=== PATIENT | female | born 1995 | race Caucasian/White ===

== ENCOUNTER → 2016-05-28 | Outpatient (CLI) | payer MEDICAID ==
[~2016-05-28] MED LIST: DOCU100C37 PO; FERR325C PO; IBUP-1780 PO; METH250T PO; OXYC-465 PO; PNV11TAB5 PO; PREN1TAB86 PO
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
== END ==
LOC: LABNPT 16:20
PROVIDERS: ATTEND Obstetrics & Gynecology
DX: O28.8 Other abnormal findings on antenatal screening of mother (principal)
CPT/HCPCS: 82570; 84156

== ENCOUNTER 2016-05-31 16:51 | Outpatient (CLI) | payer MEDICAID ==
[2016-05-31] VITALS (10 sets, daily range): BP systolic 121–143; BP diastolic 14–95
[~2016-05-31] VITALS: Ht 154.9 cm; Wt 92.5 kg
--- OUTSIDE RECORDS SUMMARY | 2016-05-31 16:57 | XMS REPORT ---
Author SUELLEN [facility] eClinicalWorks Address Unknown Phone Unavailable Care Team Providers Care Costume Design Teacher Name Role Phone SUELLEN GONZALEZ CP Unavailable Allergies, Adverse Reactions, Alerts Substance Reaction Event Type N.K.D.A. Info Not Available Non Drug Allergy Problems Problem Type Condition Code Onset Dates Condition Status Problem Screening examination for venereal disease V74.5 Active Problem Acute pharyngitis 462 Active Problem General counseling for prescription of oral contraceptives V25.01 Active Problem Screening examination for pulmonary tuberculosis V74.1 Active Medications Medication Code System Code Instructions Start Date End Date Status Dosage [facility] [address]-08 27-1 MG Orally not defined Results No Known Results Summary Purpose eClinicalWorks Submission
[2016-05-31 17:59] LABS: BASOPHILS % (AUTO) 0 % (0-10); EOSINOPHILS # (AUTO) 0.1 10^3/uL (0.0-0.3); EOSINOPHILS % (AUTO) 1 % (0-10); LYMPHOCYTES # (AUTO) 2.1 X 10^3 (1.0-4.0); LYMPHOCYTES % (AUTO) 19 % (12-44); MEAN CORPUSCULAR HEMOGLOBIN 22 PG (25-34); MEAN CORPUSCULAR HGB CONC 32 G/DL (32-36); MEAN CORPUSCULAR VOLUME 68 FL (80-99); MEAN PLATELET VOLUME 10.6 FL (7.4-10.4); MONOCYTES # (AUTO) 1.4 X 10^3 (0.0-1.0); MONOCYTES % (AUTO) 12 % (0-12); NEUTROPHILS # (AUTO) 7.5 X 10^3 (1.8-7.8); NEUTROPHILS % (AUTO) 68 % (42-75); PLATELET COUNT 238 10^3/uL (130-400); RED CELL DISTRIBUTION WIDTH 17.4 % (10.0-14.5); WHITE BLOOD COUNT 11.1 10^3/uL (4.3-11.0)
[2016-05-31 18:18] LABS: PROTEIN/CREATININE RATIO 0.15
[2016-05-31 18:20] LABS: ALANINE AMINOTRANSFERASE 12 U/L (0-55); ALBUMIN 3.1 G/DL (3.2-4.5); ANION GAP 10 MMOL/L (5-14); ASPARTATE AMINO TRANSFERASE 15 U/L (5-34); BILIRUBIN,TOTAL 0.4 MG/DL (0.1-1.0); BLOOD UREA NITROGEN 8 MG/DL (7-18); BUN/CREATININE RATIO 12; CALCIUM 9.4 MG/DL (8.5-10.1); CARBON DIOXIDE 22 MMOL/L (21-32); CHLORIDE 105 MMOL/L (98-107); CREATININE SERUM 0.66 MG/DL (0.60-1.30); GFR ESTIMATED > 60; GLUCOSE 76 MG/DL (70-105); LACTATE DEHYDROGENASE 181 U/L (125-220); SODIUM 137 MMOL/L (135-145); TOTAL PROTEIN 6.3 G/DL (6.4-8.2); URIC ACID 4.7 MG/DL (2.6-7.2)
[2016-05-31] MEDS ORDERED: PREN1TAB86 PO ×2 (18:33)
--- NOTE | 2016-06-03 15:08 | Physician Query-Final Dx ---
MOOK MCLEOD 06/03/16 1508: Clinic Account Progress/Dx Physician Query: Please give diagnosis Date of Service May 31, 2016 at 16:51 CAROL GODINEZ MD 06/04/16 0823: Clinic Account Progress/Dx DIAGNOSIS: Diagnosis KELVIN MOOK MCLEOD Jun 03, 2016 15:08 CAROL GODINEZ MD Jun 04, 2016 08:23
[2016-06-26] MEDS ORDERED: DOCU100C37 PO (07:54)
[2016-06-26] MEDS ORDERED: IBUP-1780 PO (07:54)
[2016-06-26] MEDS ORDERED: OXYC-465 PO (07:54)
== END 2016-05-31 18:40 | disposition home or self-care (01) ==
LOC: WSo 16:51 → LDRP 16:54 → WSo 18:40
PROVIDERS: ATTEND Obstetrics & Gynecology
DX: O13.9 Gestational [pregnancy-induced] hypertension without significant proteinuria, unspecified trimester (principal)
CPT/HCPCS: 36415; 80053; 82570; 83615; 84156; 84550; 85025; 99213

== ENCOUNTER 2016-06-02 17:37 | Outpatient (CLI) | payer MEDICAID ==
[~2016-06-02] VITALS: Ht 154.9 cm; Wt 92.5 kg
[~2016-06-02 17:37] MED LIST changes: -DOCU100C37 PO; -FERR325C PO; -IBUP-1780 PO; -METH250T PO; -OXYC-465 PO; -PNV11TAB5 PO
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
[2016-06-02 17:55] VITALS: BP 142/90
[2016-06-02] MEDS ORDERED: FERR325C PO ×2 (18:01)
[2016-06-02 18:10] VITALS: BP 135/78
[2016-06-02 18:25] VITALS: BP 134/84
[2016-06-02 18:40] VITALS: BP 127/76
[2016-06-02 18:55] VITALS: BP 143/92
[2016-06-02] MEDS ORDERED: CITRIC ACID/SOB CIT (BICITRA) 30 ML UDC PO ONE (19:00)
[2016-06-02] MEDS ORDERED: D5 LR IV SOLUTION 1,000 ML IV SCH (19:00)
[2016-06-02 19:19] LABS: BASOPHILS % (AUTO) 0 % (0-10); EOSINOPHILS # (AUTO) 0.2 10^3/uL (0.0-0.3); EOSINOPHILS % (AUTO) 2 % (0-10); LYMPHOCYTES # (AUTO) 2.1 X 10^3 (1.0-4.0); LYMPHOCYTES % (AUTO) 20 % (12-44); MEAN CORPUSCULAR HEMOGLOBIN 22 PG (25-34); MEAN CORPUSCULAR HGB CONC 32 G/DL (32-36); MEAN CORPUSCULAR VOLUME 69 FL (80-99); MEAN PLATELET VOLUME 11.1 FL (7.4-10.4); MONOCYTES # (AUTO) 1.3 X 10^3 (0.0-1.0); MONOCYTES % (AUTO) 13 % (0-12); NEUTROPHILS # (AUTO) 6.8 X 10^3 (1.8-7.8); NEUTROPHILS % (AUTO) 66 % (42-75); PLATELET COUNT 259 10^3/uL (130-400); RED BLOOD COUNT 4.26 10^6/uL (4.35-5.85); RED CELL DISTRIBUTION WIDTH 17.6 % (10.0-14.5); WHITE BLOOD COUNT 10.4 10^3/uL (4.3-11.0)
[2016-06-02 19:44] VITALS: BP 133/86
[2016-06-02 19:46] LABS: ALANINE AMINOTRANSFERASE 13 U/L (0-55); ALBUMIN 3.1 G/DL (3.2-4.5); ANION GAP 11 MMOL/L (5-14); ASPARTATE AMINO TRANSFERASE 18 U/L (5-34); BILIRUBIN,TOTAL 0.3 MG/DL (0.1-1.0); BLOOD UREA NITROGEN 7 MG/DL (7-18); BUN/CREATININE RATIO 11; CALCIUM 8.9 MG/DL (8.5-10.1); CARBON DIOXIDE 19 MMOL/L (21-32); CHLORIDE 106 MMOL/L (98-107); CREATININE SERUM 0.64 MG/DL (0.60-1.30); GFR ESTIMATED > 60; GLUCOSE 89 MG/DL (70-105); POTASSIUM 3.7 MMOL/L (3.6-5.0); SODIUM 136 MMOL/L (135-145); TOTAL PROTEIN 6.3 G/DL (6.4-8.2)
--- NOTE | 2016-06-03 15:20 | Physician Query-Final Dx ---
MOOK MCLEOD 06/03/16 1520: Clinic Account Progress/Dx Physician Query: Please give diagnosis Date of Service Jun 02, 2016 at 17:37 CAROL GODINEZ MD 06/04/16 0826: Clinic Account Progress/Dx DIAGNOSIS: Diagnosis false labor MOOK MCLEOD Jun 03, 2016 15:20 CAROL GODINEZ MD Jun 04, 2016 08:26
[2016-06-26] MEDS ORDERED: DOCU100C37 PO (07:54)
[2016-06-26] MEDS ORDERED: OXYC-465 PO (07:54)
[2016-06-26] MEDS ORDERED: IBUP-1780 PO (07:54)
== END 2016-06-02 21:25 | disposition home or self-care (01) ==
LOC: LDRP 17:37 → WSo 17:37
PROVIDERS: ATTEND Obstetrics & Gynecology
DX: O47.03 False labor before 37 completed weeks of gestation, third trimester (principal); Z3A.35 35 weeks gestation of pregnancy
CPT/HCPCS: 36415; 80053; 85025; 96360; 96361; 99214

== ENCOUNTER → 2016-06-04 | Outpatient (CLI) | payer MEDICAID ==
[~2016-06-04] MED LIST changes: +DOCU100C37 PO; +FERR325C PO; +IBUP-1780 PO; +METH250T PO; +OXYC-465 PO; +PNV11TAB5 PO
[2016-06-04 17:02] LABS: PROTEIN/CREATININE RATIO 0.14
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
== END ==
LOC: LABNPT 12:00
PROVIDERS: ATTEND Obstetrics & Gynecology
DX: O14.03 Mild to moderate pre-eclampsia, third trimester (principal)
CPT/HCPCS: 82570; 84156

== ENCOUNTER 2016-06-10 14:22 | Outpatient (CLI) | payer MEDICAID ==
[~2016-06-10] VITALS: Ht 154.9 cm; Wt 93.4 kg
[~2016-06-10 14:22] MED LIST changes: -DOCU100C37 PO; -IBUP-1780 PO; -METH250T PO; -OXYC-465 PO; -PNV11TAB5 PO
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
[2016-06-10 15:00] VITALS: BP 134/93
[2016-06-10] MEDS ORDERED: D5 LR IV SOLUTION 1,000 ML IV ONE (15:00)
[2016-06-10 15:29] LABS: PROTEIN/CREATININE RATIO 0.12
[2016-06-10 16:25] VITALS: BP 154/94
[2016-06-10] MEDS ORDERED: oxyCODONE/APAP 10/325MG (PERCOCET 10) TABLET PO ONE (17:00)
[2016-06-10 17:10] VITALS: BP 137/90
--- NOTE | 2016-06-11 11:24 | Physician Query-Final Dx ---
SALINAS PAREDES 06/11/16 1124: Final Diagnosis Give Final Diagnosis Please give Final Diagnosis CAROL GODNIEZ MD 06/11/16 1728: Final Diagnosis Give Final Diagnosis PIH / false labor SALINAS PAREDES Jun 11, 2016 11:24 CAROL GODINEZ MD Jun 11, 2016 17:28
== END 2016-06-10 18:03 | disposition home or self-care (01) ==
LOC: LDRP 14:22 → WSo 14:22
PROVIDERS: ATTEND Obstetrics & Gynecology
DX: O13.3 Gestational [pregnancy-induced] hypertension without significant proteinuria, third trimester (principal); O47.03 False labor before 37 completed weeks of gestation, third trimester; Z3A.36 36 weeks gestation of pregnancy
CPT/HCPCS: 82570; 84156; 96360; 99214

== ENCOUNTER 2016-06-19 08:04 | Outpatient (CLI) | payer MEDICAID ==
[2016-06-19 09:40] VITALS: BP 155/77
[2016-06-19 09:53] LABS: PROTEIN/CREATININE RATIO 0.13
--- NOTE | 2016-06-19 11:35 | Progress Note-Standard ---
Standard Progress Note Progress Notes/Assess & Plan Date Seen 06/19/16 Assess & Plan/Chief Complaint Update Note Pt presented to [facility] as ordered by Dr. Moore for NST, BP check and urine protein:cr ratio for "PIH/polyhydramnios" Reviewed BPs - mild range (133/93) - was mild range as well last week when evaluated on 06/10. I do not have records of BPs from her recent clinic visits to review. Denied si/sx of pre-eclampsia to RN. NST reactive. Protein:cr ratio 0.13. Will act in accordance with Dr. Moore's plan for patient to be seen in clinic next week as vitals/labs have not changed and surveillance is reassuring. Instructed RN to instruct patient to return with any si/sx pre- eclampsia or ANY other concerns. I did not personally see patient today. BARBARA BUTTS MD Jun 19, 2016 11:35
--- NOTE | 2016-06-20 09:55 | Physician Query-Final Dx ---
Clinic Account Progress/Dx Physician Query: Please give diagnosis Date of Service Jun 19, 2016 at 08:04 SALINAS PAREDES Jun 20, 2016 09:55
[2016-06-26] MEDS ORDERED: IBUP-1780 PO (07:54)
[2016-06-26] MEDS ORDERED: OXYC-465 PO (07:54)
[2016-06-26] MEDS ORDERED: DOCU100C37 PO (07:54)
== END 2016-06-19 11:35 | disposition home or self-care (01) ==
LOC: DELPENDDIS → WSo 08:04 → LDRP 08:04 → WSo 11:35
PROVIDERS: ATTEND Obstetrics & Gynecology
DX: O13.3 Gestational [pregnancy-induced] hypertension without significant proteinuria, third trimester (principal); O40.3XX0 Polyhydramnios, third trimester, not applicable or unspecified; Z3A.38 38 weeks gestation of pregnancy
CPT/HCPCS: 59025; 82570; 84156

== ENCOUNTER → 2016-06-24 | Outpatient (CLI) | payer MEDICAID ==
[~2016-06-24] MED LIST changes: +DOCU100C37 PO; +IBUP-1780 PO; +METH250T PO; +OXYC-465 PO; +PNV11TAB5 PO
[2016-06-24 16:25] LABS: PROTEIN/CREATININE RATIO 0.21
== END ==
LOC: LABNPT 15:30
PROVIDERS: ATTEND Obstetrics & Gynecology
DX: O28.8 Other abnormal findings on antenatal screening of mother (principal)
CPT/HCPCS: 82570; 84156

== ENCOUNTER 2016-06-25 07:21 | Inpatient (IN) | payer MEDICAID ==
[2016-06-25] VITALS (50 sets, daily range): BP systolic 115–155; BP diastolic 60–98
[~2016-06-25] VITALS: Ht 152.4 cm; Wt 92.8 kg
[~2016-06-25 07:21] MED LIST changes: -DOCU100C37 PO; -IBUP-1780 PO; -METH250T PO; -OXYC-465 PO; -PNV11TAB5 PO
[2016-06-25] MEDS ORDERED: OXYTOCIN/NORMAL SALINE 500 ML IV SCH ×2 (07:36→17:42)
[2016-06-25] MEDS ORDERED: METH250T PO (07:39)
[2016-06-25] MEDS ORDERED: PNV11TAB5 PO (07:39)
[2016-06-25] MEDS: D5 LR IV SOLUTION 1,000 ML IV SCH ×2 (07:40→14:25)
--- NOTE | 2016-06-25 07:41 | History & Physical ---
History and Physical this patient is a 20-year-old G1 white female with an EDC of 4 [phone] putting her now at 39 weeks gestation. She has had persistent elevated blood pressures her she has been on Aldomet 250 mg twice a day for control of her -induced hypertension followed also for somewhat elevated amniotic fluid level. Her WINNIE last checked on June 11 was 234 patient presents now for elective induction of labor. She denies rupture membranes or bleeding. She's had no other problems with this . She had a GBS culture on May that was negative Allergies are none Medications are vitamins iron sulfate and Aldomet Past medical history, past surgical history, obstetric history, family history, and social histories are per the antepartum record HEENT exam is normal Neck is supple no lymphadenopathy no thyromegaly Abdomen is gravid soft nontender nondistended Extreme show clubbing cyanosis. There is no Homans sign. There is some pretibial pitting edema that is normal. Exam was performed on June 24, 2016 in my clinic showed a cervix about 3 similar dilated 50 percent plus effaced -1-0 station the cervix is anterior and soft. Presenting part was vertex. Membranes were intact. Polanco score of 9 at 10 assessment and plan term at 39 weeks gestation with PIH and with mild polyhydramnios. She is admitted now at 39 weeks gestation for Pitocin induction of labor. Anticipation is for vaginal delivery although the potential for has been discussed with the patient and plans preparation replace for if necessary 39 week with PIH and polyhydramnios Allergies and Home Medications Allergies Coded Allergies: No Known Drug Allergies (Unverified , 07/07/15) Home Medications Ferrous Sulfate 325 Mg Capsule.er, 325 MG PO DAILY, (Reported) Vit W-Ca,Fe,FA(<1 mg) 1 Each Tablet, 1 EACH PO DAILY, (Reported) CAROL GODINEZ MD Jun 25, 2016 7:41 am
--- NOTE | 2016-06-25 07:42 | OB Bishop Score ---
Polanco Score 9 CAROL GODINEZ MD Jun 25, 2016 7:42 am
[2016-06-25 08:12] LABS: BASOPHILS % (AUTO) 0 % (0-10); EOSINOPHILS # (AUTO) 0.1 10^3/uL (0.0-0.3); EOSINOPHILS % (AUTO) 1 % (0-10); LYMPHOCYTES # (AUTO) 2.2 X 10^3 (1.0-4.0); LYMPHOCYTES % (AUTO) 17 % (12-44); MEAN CORPUSCULAR HEMOGLOBIN 22 PG (25-34); MEAN CORPUSCULAR HGB CONC 32 G/DL (32-36); MEAN CORPUSCULAR VOLUME 69 FL (80-99); MEAN PLATELET VOLUME 11.5 FL (7.4-10.4); MONOCYTES # (AUTO) 1.3 X 10^3 (0.0-1.0); MONOCYTES % (AUTO) 10 % (0-12); NEUTROPHILS # (AUTO) 9.3 X 10^3 (1.8-7.8); NEUTROPHILS % (AUTO) 72 % (42-75); PLATELET COUNT 250 10^3/uL (130-400); RED CELL DISTRIBUTION WIDTH 18.6 % (10.0-14.5); WHITE BLOOD COUNT 12.8 10^3/uL (4.3-11.0)
[2016-06-25] MEDS ORDERED: ACETAMINOPHEN 500 MG TAB (TYLENOL) PO PRN (09:30)
[2016-06-25] MEDS ORDERED: LACTATED RINGERS 1,000 ML IV ONE ×3 (11:16→17:35)
[2016-06-25] MEDS ORDERED: BUPIVACAINE 0.25% 30 ML (SENSORCAINE) VIAL ONE (11:17)
[2016-06-25] MEDS ORDERED: fentaNYL INJECTION 100 MCG/2 ML AMP ONE ×2 (11:17→17:51)
[2016-06-25] MEDS ORDERED: SUFENTA 0.6MCG/ML BUPIVA 0.125 100 ML ONE (11:17)
[2016-06-25] MEDS ORDERED: ONDANSETRON 4 MG/2 ML (SDV) Z0FRAN IV PRN (13:15)
[2016-06-25] MEDS ORDERED: EPIDURAL (SUFENTA 0.6MCG/ML BUPIVA 0.125%) 100 ML BAG EPI SCH (13:15)
[2016-06-25] MEDS ORDERED: BUPIVACAINE 0.25% 30 ML (SENSORCAINE) VIAL INJ ONE (13:15)
[2016-06-25] MEDS ORDERED: NALOXONE 0.4 MG/ML 1 ML (NARCAN) VIAL IV PRN (13:15)
[2016-06-25] MEDS ORDERED: metroNIDAZOLE 500MG/100ML IVPB 100 ML ONE (17:35)
[2016-06-25] MEDS ORDERED: METOCLOPRAMIDE INJ 10 MG/2 ML (REGLAN) ONE (17:35)
[2016-06-25] MEDS ORDERED: FAMOTIDINE 20MG/2ML IV (PEPCID) ONE (17:35)
[2016-06-25] MEDS ORDERED: ceFAZolin 2 GM/50 ML NS 50 ML IV ONE (17:35)
[2016-06-25] MEDS ORDERED: CITRIC ACID/SOB CIT (BICITRA) 30 ML UDC ONE (17:35)
[2016-06-25] MEDS ORDERED: D5 LR IV SOLUTION 1,000 ML IV SCH (17:40)
--- NOTE | 2016-06-25 17:40 | Progress Note-Standard ---
Standard Progress Note Progress Notes/Assess & Plan Progress/Assessment & Plan called to see patient has no cervical change for over 2 hours now. Patient reached 7 cm on Pitocin induction and had stalled there. The presenting part was at the -1 station and has not descended any beyond that. there started to be fairly significant early D cells that are beginnng to have a slow recovery. This is been discussed with patient she understands with the lack of progress and with the D cells that is appropriate now to stop the Pitocin and proceed with . She understands and agrees. Surgical risk complication recovering follow-up have been discussed with this patient during her and anticipation of a . All of her questions were answered she is ready to proceed Laboratory Tests 06/25/16 07:30 Vital Signs 06/25/16 06/25/16 16:30 17:00 Temp 98.3 Pulse 101 Resp 20 B/P (MAP) 136/84 Pulse Ox 100 O2 Delivery Non Rebreather O2 Flow Rate 10.00 Abdomen is gravid. Pelvic exam reveals a cervix at 7 cm dilated 60 or 70 percent effaced. Presenting part is at the -1 station with relatively long caput. Patient has been at 18 mU/m with good effect. As patient has failed to demonstrate adequate progress now with Pitocin stopped with the uterus can be allowed to rest. Surgical crews anesthesia and crank hand have been notified. C- section is pending CAROL GODINEZ MD Jun 25, 2016 5:40 pm
[2016-06-25] MEDS ORDERED: LACTATED RINGERS 1,000 ML IV PRN (17:43)
[2016-06-25] MEDS ORDERED: KETOROLAC 30 MG/ML VIAL IVP SCH (17:45)
[2016-06-25] MEDS ORDERED: MEASLES,MUMPS,RUBELLA 1 EA INJ SC ONE (17:45)
[2016-06-25] MEDS ORDERED: METOCLOPRAMIDE INJ 10 MG/2 ML (REGLAN) IV ONE (17:45)
[2016-06-25] MEDS ORDERED: CITRIC ACID/SOB CIT (BICITRA) 30 ML UDC PO ONE (17:45)
[2016-06-25] MEDS ORDERED: FAMOTIDINE 20MG/2ML IV (PEPCID) IV ONE (17:45)
[2016-06-25] MEDS ORDERED: PROMETHAZINE INJ 25 MG/ML (PHENERGAN) AMP IM PRN (17:45)
[2016-06-25] MEDS ORDERED: metroNIDAZOLE 500MG/100ML IVPB 100 ML IV ONE (17:45)
[2016-06-25] MEDS ORDERED: MEPERIDINE (DEMEROL) INJ 100 MG/ML IM PRN (17:45)
[2016-06-25] MEDS ORDERED: TETANUS,DIPTH,PERTUSS P/F (BOOSTRIX) 0.5 ML VIAL IM ONE (17:45)
[2016-06-25] MEDS ORDERED: D5 LR IV SOLUTION 1,000 ML IV ONE (17:50)
[2016-06-25] MEDS ORDERED: ONDANSETRON 4 MG/2 ML (SDV) Z0FRAN ONE (17:50)
[2016-06-25] MEDS ORDERED: BUPIVACAINE 0.5% 30 ML (SENSORCAINE) VIAL ONE (18:25)
[2016-06-25] MEDS ORDERED: LIDOCAINE PF 2% 10 ML (XYLOCAINE) AMP ONE (18:25)
[2016-06-25] MEDS ORDERED: OXYTOCIN/NORMAL SALINE 500 ML IV ONE (18:34)
[2016-06-25] MEDS: KETOROLAC 30 MG/ML VIAL IVP SCH (19:00)
[2016-06-25] MEDS: DOCUSATE SODIUM 100 MG (COLACE) CAP PO SCH (22:28)
[2016-06-26] MEDS: KETOROLAC 30 MG/ML VIAL IVP SCH ×2 (00:31→06:04)
[2016-06-26 04:26] VITALS: BP 123/79
[2016-06-26] MEDS: oxyCODONE/APAP 10/325MG (PERCOCET 10) TABLET PO PRN ×4 (05:43→21:52)
--- NOTE | 2016-06-26 07:51 | Progress Note-Standard ---
Standard Progress Note Progress Notes/Assess & Plan Progress/Assessment & Plan called to see patient has no cervical change for over 2 hours now. Patient reached 7 cm on Pitocin induction and had stalled there. The presenting part was at the -1 station and has not descended any beyond that. there started to be fairly significant early D cells that are beginnng to have a slow recovery. This is been discussed with patient she understands with the lack of progress and with the D cells that is appropriate now to stop the Pitocin and proceed with . She understands and agrees. Surgical risk complication recovering follow-up have been discussed with this patient during her and anticipation of a . All of her questions were answered she is ready to proceed Laboratory Tests 06/25/16 07:30 Vital Signs 06/25/16 06/25/16 16:30 17:00 Temp 98.3 Pulse 101 Resp 20 B/P (MAP) 136/84 Pulse Ox 100 O2 Delivery Non Rebreather O2 Flow Rate 10.00 Abdomen is gravid. Pelvic exam reveals a cervix at 7 cm dilated 60 or 70 percent effaced. Presenting part is at the -1 station with relatively long caput. Patient has been at 18 mU/m with good effect. As patient has failed to demonstrate adequate progress now with Pitocin stopped with the uterus can be allowed to rest. Surgical crews anesthesia and gut snatcher have been notified. C- section is pending June 26, 2016 Patient is without complaint. Patient is ambulating, voiding, tolerating by mouth well, denies chest pain, denies shortness of breath, denies nausea vomiting, denies headache, patient has good pain control. Vital Signs Date Time Temp Pulse Resp B/P (MAP) Pulse Ox O2 Delivery O2 Flow Rate FiO2 06/26/16 04:26 97.8 98 16 123/79 97 Room Air 06/25/16 23:47 98.9 104 16 123/73 97 Room Air 06/25/16 20:00 96.7 100 18 128/79 97 Room Air 06/25/16 18:00 115 20 150/98 98 Room Air 06/25/16 17:45 117 20 135/76 100 Non Rebreather 10.00 06/25/16 17:30 98.6 92 20 136/83 100 Non Rebreather 10.00 06/25/16 17:15 94 20 136/91 100 Non Rebreather 10.00 06/25/16 17:00 101 20 136/84 100 Non Rebreather 10.00 06/25/16 16:45 98 20 135/75 100 Non Rebreather 10.00 06/25/16 16:30 98.3 102 20 133/80 100 Non Rebreather 10.00 06/25/16 16:15 99 20 133/79 100 Non Rebreather 10.00 06/25/16 16:00 98 20 129/77 100 Non Rebreather 10.00 06/25/16 15:45 96 20 126/80 100 Non Rebreather 10.00 06/25/16 15:30 98.5 93 20 131/68 100 Non Rebreather 10.00 06/25/16 15:15 104 20 126/76 100 Non Rebreather 10.00 06/25/16 15:00 90 20 128/85 100 Non Rebreather 10.00 06/25/16 14:45 89 20 118/78 100 Non Rebreather 10.00 06/25/16 14:30 99.2 111 20 124/84 98 Room Air 06/25/16 14:15 120 20 131/87 99 Room Air 06/25/16 14:00 120 20 126/84 99 Room Air 06/25/16 13:45 107 20 123/77 99 Room Air 06/25/16 13:30 116 20 125/78 99 Room Air 06/25/16 13:15 97.8 105 20 115/67 100 Room Air 06/25/16 13:00 114 20 119/73 99 Room Air 06/25/16 12:45 110 20 120/60 98 Room Air 06/25/16 12:30 113 20 116/61 98 Room Air 06/25/16 12:15 98.6 120 20 120/62 99 Room Air 06/25/16 12:03 110 20 130/78 98 Room Air 06/25/16 12:01 107 20 128/79 99 Room Air 06/25/16 12:00 106 20 144/93 99 Room Air 06/25/16 11:58 107 20 131/81 99 Room Air 06/25/16 11:56 113 20 145/90 98 Room Air 06/25/16 11:54 120 20 141/84 99 Room Air 06/25/16 11:50 123 20 137/87 98 Room Air 06/25/16 11:45 106 20 142/91 Room Air 06/25/16 11:30 98.3 118 20 146/96 Room Air 06/25/16 11:15 108 20 136/90 Room Air 06/25/16 11:00 105 20 132/86 Room Air 06/25/16 10:45 98.4 100 20 143/88 Room Air 06/25/16 10:30 106 20 141/90 Room Air 06/25/16 10:15 106 20 151/90 Room Air 06/25/16 10:00 104 20 154/90 Room Air 06/25/16 09:45 101 20 155/95 Room Air 06/25/16 09:30 98.5 104 20 139/91 Room Air 06/25/16 09:15 98.0 102 20 136/88 Room Air 06/25/16 09:00 104 20 136/86 Room Air 06/25/16 08:45 105 20 132/87 Room Air 06/25/16 08:30 112 20 135/89 Room Air 06/25/16 08:15 108 20 131/87 Room Air 06/25/16 08:00 106 20 139/81 Room Air I & O 06/26/16 07:00 Intake Total 5795 ml Output Total 2500 ml Balance 3295 ml Signs are stable. Patient is afebrile. Fundus is firm below the umbilicus and nontender. The abdomen is minimally tympanitic. the incision is clean dry and intact. Extremities show clubbing cyanosis. There is no Homans sign. There is some pretibial pitting edema that is normal. assessment and plan postoperative day number 1 status post primary doing well. Plan is for routine convalescence care today and consider discharge home tomorrow CAROL GODINEZ MD Jun 26, 2016 7:51 am
[2016-06-26] MEDS ORDERED: IBUP-1780 PO (07:54)
[2016-06-26] MEDS ORDERED: OXYC-465 PO (07:54)
[2016-06-26] MEDS ORDERED: DOCU100C37 PO (07:54)
--- NOTE | 2016-06-26 07:55 | Discharge Instructions ---
Discharge Instructions Discharge Medications New, Converted or Re-Newed RX: RX on Chart Patient Instructions Patient Instructions: as directed Return to The Hospital For: as directed Activity & Diet Discharge Diet: No Restrictions Activity as Tolerated: No Orders-Post D/C & Referrals Follow Up Appt: RTC 1 week for incision check. Call to make follow up appt. for patient in 4 weeks. Wound Care: Remove racheal, apply benzoin and steri strips. Activity Per routine post instructions. Diet as tolerated Patient may shower or tub bathe as desired. Continue home meds CAROL GODINEZ MD Jun 26, 2016 7:55 am
[2016-06-26 08:00] VITALS: BP 120/80
[2016-06-26] MEDS: DOCUSATE SODIUM 100 MG (COLACE) CAP PO SCH ×2 (09:02→20:59)
[2016-06-26] MEDS ORDERED: IBUPROFEN 800 MG (MOTRIN) TAB PO ONE (11:57)
[2016-06-26 12:00] VITALS: BP 124/82
[2016-06-26] MEDS: IBUPROFEN 800 MG (MOTRIN) TAB PO SCH ×2 (12:03→18:02)
[2016-06-26] MEDS ORDERED: TETANUS,DIPTH,PERTUSS P/F (BOOSTRIX) 0.5 ML VIAL IM ONE (12:09)
--- NOTE | 2016-06-26 13:26 | OPERATIVE REPORT ---
PROCEDURE PHYSICIAN: CAROL GODINEZ DATE OF PROCEDURE: 06/25/2016 DATE OF DICTATION: 06/25/2016 PREOPERATIVE DIAGNOSIS: 1. Term in labor. 2. Failure to progress/PIH/oligo. POSTOPERATIVE DIAGNOSIS: 1. Term in labor. 2. Failure to progress/PIH/oligo. OPERATIVE PROCEDURE: Primary low transverse delivery of a viable male with Apgars of 9 and 9 at one and five minutes record. His weight 7 pounds 15 ounces. time 1821. Cord blood pH was 7.31. OPERATIVE DESCRIPTION: With the patient in the supine position, under satisfactory epidural anesthesia, the patient was prepped and draped usual fashion for abdominal surgery. Thomas catheter had been placed in the urinary bladder during labor that was left to dependent drainage. A Pfannenstiel incision was made through skin with scalpel. The patient's abdomen entered in the usual manner. Bladder retractor placed in position, clean scalpel used to make a 4 cm hysterotomy incision transversely across lower segment that was extended by blunt dissection as well. A vigorous viable male infant was delivered from a straight OP position via the uterine incision. Infant had Apgars of 9 and 9 at one and five respectfully, weight 7 pounds 15 ounces. Cord blood pH was 7.31 from an umbilical artery. time was 182. The infant was bulb suctioned on delivery of the head again on completion of delivery. The cord doubly clamped and cut and infant passed to nurse Vangie Combs R.N., the pediatric nurse in attendance for delivery. Cord bloods were obtained and with values as noted above. The placenta delivered spontaneously Al. It was normal with a 3 vessel cord. The uterus was exteriorized, interior wiped clean with a wet laparotomy sponge. Uterine incision then closed with running lock suture of 2-0 Vicryl. Hemostasis was complete. The uterus was returned into the abdominal cavity. All blood clot and debris removed from the abdominal cavity. With sponge and needle counts correct hemostasis assured, the anterior parietal peritoneum was closed running suture of 2-0 Vicryl. The rectus muscles were closed with that suture well. The rectus fascia was closed 2-0 Vicryl. Subcutaneous tissues closed 2-0 Vicryl and the skin was stapled. Sponge and needle counts were correct at the end of procedure. Estimated blood loss for the procedure was around 300 mL. The patient tolerated the procedure well, and was transferred to recovery room in stable condition. The infant had been taken stable to the full term nursery under the care of nurse Combs Job ID: [id number] Dictated Date: 06/25/2016 18:44:23 Pmo Lead Date: 06/26/2016 13:21:27 / levi
--- NOTE | 2016-06-26 14:52 | Anesthesia-Regional Post-Op ---
Regional Patient Condition Mental Status: Alert, Oriented x3 Circulation: Same as Pre-Op Headache: Absent Sensation: Full Recovery Motor Block: Absent Post Op Complications Complications None Follow Up Care/Instructions Patient Instructions None needed. Anesthesia/Patient Condition Patient is doing well, no complaints, stable vital signs, no apparent adverse anesthesia problems. No complications reported per nursing. CINDY ZARATE CRNA Jun 26, 2016 14:52
[2016-06-26 16:00] VITALS: BP 123/80
[2016-06-26] MEDS ORDERED: IBUPROFEN 800 MG (MOTRIN) TAB PO SCH (17:45)
[2016-06-26] MEDS ORDERED: ceFAZolin 2 GM/50 ML NS 50 ML IV ONE (17:45)
[2016-06-26 20:58] VITALS: BP 122/75
[2016-06-27] MEDS: IBUPROFEN 800 MG (MOTRIN) TAB PO SCH ×3 (00:10→12:05)
[2016-06-27 02:14] VITALS: BP 117/73
--- NOTE | 2016-06-27 07:48 | Progress Note-Standard ---
Standard Progress Note Progress Notes/Assess & Plan Progress/Assessment & Plan called to see patient has no cervical change for over 2 hours now. Patient reached 7 cm on Pitocin induction and had stalled there. The presenting part was at the -1 station and has not descended any beyond that. there started to be fairly significant early D cells that are beginnng to have a slow recovery. This is been discussed with patient she understands with the lack of progress and with the D cells that is appropriate now to stop the Pitocin and proceed with . She understands and agrees. Surgical risk complication recovering follow-up have been discussed with this patient during her and anticipation of a . All of her questions were answered she is ready to proceed Laboratory Tests 06/25/16 07:30 Vital Signs 06/25/16 06/25/16 16:30 17:00 Temp 98.3 Pulse 101 Resp 20 B/P (MAP) 136/84 Pulse Ox 100 O2 Delivery Non Rebreather O2 Flow Rate 10.00 Abdomen is gravid. Pelvic exam reveals a cervix at 7 cm dilated 60 or 70 percent effaced. Presenting part is at the -1 station with relatively long caput. Patient has been at 18 mU/m with good effect. As patient has failed to demonstrate adequate progress now with Pitocin stopped with the uterus can be allowed to rest. Surgical crews anesthesia and contract preparer have been notified. C- section is pending June 26, 2016 Patient is without complaint. Patient is ambulating, voiding, tolerating by mouth well, denies chest pain, denies shortness of breath, denies nausea vomiting, denies headache, patient has good pain control. Vital Signs Date Time Temp Pulse Resp B/P (MAP) Pulse Ox O2 Delivery O2 Flow Rate FiO2 06/26/16 04:26 97.8 98 16 123/79 97 Room Air 06/25/16 23:47 98.9 104 16 123/73 97 Room Air 06/25/16 20:00 96.7 100 18 128/79 97 Room Air 06/25/16 18:00 115 20 150/98 98 Room Air 06/25/16 17:45 117 20 135/76 100 Non Rebreather 10.00 06/25/16 17:30 98.6 92 20 136/83 100 Non Rebreather 10.00 06/25/16 17:15 94 20 136/91 100 Non Rebreather 10.00 06/25/16 17:00 101 20 136/84 100 Non Rebreather 10.00 06/25/16 16:45 98 20 135/75 100 Non Rebreather 10.00 06/25/16 16:30 98.3 102 20 133/80 100 Non Rebreather 10.00 06/25/16 16:15 99 20 133/79 100 Non Rebreather 10.00 06/25/16 16:00 98 20 129/77 100 Non Rebreather 10.00 06/25/16 15:45 96 20 126/80 100 Non Rebreather 10.00 06/25/16 15:30 98.5 93 20 131/68 100 Non Rebreather 10.00 06/25/16 15:15 104 20 126/76 100 Non Rebreather 10.00 06/25/16 15:00 90 20 128/85 100 Non Rebreather 10.00 06/25/16 14:45 89 20 118/78 100 Non Rebreather 10.00 06/25/16 14:30 99.2 111 20 124/84 98 Room Air 06/25/16 14:15 120 20 131/87 99 Room Air 06/25/16 14:00 120 20 126/84 99 Room Air 06/25/16 13:45 107 20 123/77 99 Room Air 06/25/16 13:30 116 20 125/78 99 Room Air 06/25/16 13:15 97.8 105 20 115/67 100 Room Air 06/25/16 13:00 114 20 119/73 99 Room Air 06/25/16 12:45 110 20 120/60 98 Room Air 06/25/16 12:30 113 20 116/61 98 Room Air 06/25/16 12:15 98.6 120 20 120/62 99 Room Air 06/25/16 12:03 110 20 130/78 98 Room Air 06/25/16 12:01 107 20 128/79 99 Room Air 06/25/16 12:00 106 20 144/93 99 Room Air 06/25/16 11:58 107 20 131/81 99 Room Air 06/25/16 11:56 113 20 145/90 98 Room Air 06/25/16 11:54 120 20 141/84 99 Room Air 06/25/16 11:50 123 20 137/87 98 Room Air 06/25/16 11:45 106 20 142/91 Room Air 06/25/16 11:30 98.3 118 20 146/96 Room Air 06/25/16 11:15 108 20 136/90 Room Air 06/25/16 11:00 105 20 132/86 Room Air 06/25/16 10:45 98.4 100 20 143/88 Room Air 06/25/16 10:30 106 20 141/90 Room Air 06/25/16 10:15 106 20 151/90 Room Air 06/25/16 10:00 104 20 154/90 Room Air 06/25/16 09:45 101 20 155/95 Room Air 06/25/16 09:30 98.5 104 20 139/91 Room Air 06/25/16 09:15 98.0 102 20 136/88 Room Air 06/25/16 09:00 104 20 136/86 Room Air 06/25/16 08:45 105 20 132/87 Room Air 06/25/16 08:30 112 20 135/89 Room Air 06/25/16 08:15 108 20 131/87 Room Air 06/25/16 08:00 106 20 139/81 Room Air I & O 06/26/16 07:00 Intake Total 5795 ml Output Total 2500 ml Balance 3295 ml Signs are stable. Patient is afebrile. Fundus is firm below the umbilicus and nontender. The abdomen is minimally tympanitic. the incision is clean dry and intact. Extremities show clubbing cyanosis. There is no Homans sign. There is some pretibial pitting edema that is normal. assessment and plan postoperative day number 1 status post primary doing well. Plan is for routine convalescence care today and consider discharge home tomorrow June 27, 2016 this patient is without complaint. She is ambulating, voiding, tolerating by mouth well, has good pain control, and is requesting discharge home. patient denies chest pain, denies shortness of breath, denies headache, denies nausea vomiting. Vital Signs Date Time Temp Pulse Resp B/P (MAP) Pulse Ox O2 Delivery O2 Flow Rate FiO2 06/27/16 02:14 97.5 113 18 117/73 97 Room Air 06/26/16 20:58 97.6 113 18 122/75 Room Air 06/26/16 16:00 97.8 109 18 123/80 98 Room Air 06/26/16 12:00 97.8 110 16 124/82 99 Room Air 06/26/16 08:00 98.2 109 20 120/80 98 Room Air I & O 06/27/16 07:00 Intake Total 4120 ml Output Total 2500 ml Balance 1620 ml vital signs are stable. Patient blood pressures have normalized. Fundus is firm below the umbilicus and nontender. The incision is clean dry and intact. Extremities show no clubbing or cyanosis. There is no Homans sign. There is fairly notable pretibial pitting edema that is normal at this point. Assessment and plan postoperative day number 2 status post primary . Progress in labor. Patient also had PIH that has resolved. Patient also had polyhydramnios and placental pathology is pending as well plan is for discharge home with follow-up in clinic Final Diagnosis primary delivery at 39 weeks gestation CAROL GODINEZ MD Jun 27, 2016 7:48 am
[2016-06-27 08:30] VITALS: BP 125/86
[2016-06-27] MEDS: KETOROLAC 30 MG/ML VIAL IVP SCH (08:38)
[2016-06-27] MEDS: DOCUSATE SODIUM 100 MG (COLACE) CAP PO SCH (08:58)
[2016-06-27] MEDS: oxyCODONE/APAP 10/325MG (PERCOCET 10) TABLET PO PRN (08:59)
[2016-06-27 14:25] VITALS: BP 131/88
--- OUTSIDE RECORDS SUMMARY | 2016-07-09 20:18 | XMS REPORT ---
Author SUELLEN Casas [facility] eClinicalWorks Address Unknown Phone Unavailable Care Team Providers Care Lead Manufacturing Engineer Name Role Phone SUELLEN GONZALEZ CP Unavailable [...] Instructions Start Date End Date Status Dosage [facility] [address]-05 27-1 MG Orally not defined Results No Known Results Summary Purpose eClinicalWorks Submission
--- OUTSIDE RECORDS SUMMARY | 2016-07-09 20:19 | XMS REPORT ---
Author SUELLEN Casas [facility] eClinicalWorks Address Unknown Phone Unavailable Care Team Providers Care Brewing Director Name Role Phone SUELLEN GONZALEZ CP Unavailable Allergies No Known Allergies Problems Problem Type Condition Code Onset Dates Condition Status Problem Screening examination for venereal disease V74.5 Active Problem Acute pharyngitis 462 Active Problem General counseling for prescription of oral contraceptives V25.01 Active Problem Screening examination for pulmonary tuberculosis V74.1 Active Assessment Encounter for test, result positive Z32.01 Active Medications No Known Medications Procedures Procedure Coding System Code Date URINE TEST CPT-4 80947 October 21, 2015 Results No Known Results Summary Purpose eClinicalWorks Submission
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
--- OUTSIDE RECORDS SUMMARY | 2016-07-09 20:19 | XMS REPORT ---
Author SUELLEN Casas [facility] eClinical[employer] Address Unknown Phone Unavailable Care Team Providers Care Eeo Officer Name Role Phone SUELLEN GONZALEZ CP Unavailable Allergies No Known Allergies Problems Problem Type Condition Code Onset Dates Condition Status Problem Screening examination for venereal disease V74.5 Active Problem Acute pharyngitis 462 Active Problem General counseling for prescription of oral contraceptives V25.01 Active Problem Screening examination for pulmonary tuberculosis V74.1 Active Assessment Encounter for immunization Z23 Active Medications No Known Medications Procedures Procedure Coding System Code Date SINGLE IMMUNIZATION ADMIN CPT-4 08431 Feb 24, 2015 HEP B (ADULT) CPT-4 77419 Feb 24, 2015 Results No Known Results Immunizations Vaccine Administration Date HEP B (ADULT) Feb 24, 2015 Summary Purpose eClinicalWorks Submission
== END 2016-06-27 17:20 | disposition home or self-care (01) | DRG 765 ==
LOC: DELPENDDIS → LDRP 07:21
PROVIDERS: ADMIT Obstetrics & Gynecology; ATTEND Obstetrics & Gynecology
PROC: 3E033VJ Introduction of Other Hormone into Peripheral Vein, Percutaneous Approach (ICD-10-PCS; 2016-06-25)
PROC: 10D00Z1 Extraction of Products of Conception, Low, Open Approach (ICD-10-PCS; principal; 2016-06-25 18:04)
DX: O13.4 Gestational [pregnancy-induced] hypertension without significant proteinuria, complicating childbirth (principal); O40.3XX0 Polyhydramnios, third trimester, not applicable or unspecified; Z3A.39 39 weeks gestation of pregnancy; Z37.0 Single live birth; Z23 Encounter for immunization
CPT/HCPCS: 36415; 85025; 86850; 86900; 86901; 90715; 94664

== ENCOUNTER 2016-12-13 06:34 | Emergency (ER) | payer MEDICAID ==
[~2016-12-13] VITALS: Ht 152.4 cm; Wt 92.8 kg
[~2016-12-13 06:34] MED LIST changes: +DOCU100C37 PO; +IBUP-1780 PO; +METH250T PO; +OXYC-465 PO; +PNV11TAB5 PO
[2016-12-13] MEDS ORDERED: AMOX1TAB12 (06:47)
[2016-12-13] MEDS ORDERED: NORG1TAB14 (06:47)
[2016-12-13] MEDS ORDERED: DEXAMETHASONE PF 10 MG/ML (DECADRON) VIAL IV STA (06:48)
[2016-12-13] MEDS ORDERED: NS IV 1000 ML 1,000 ML IV ONE (06:48)
[2016-12-13] MEDS ORDERED: KETOROLAC 30 MG/ML VIAL IVP STA (06:48)
[2016-12-13] MEDS ORDERED: ONDANSETRON 4 MG/2 ML (SDV) Z0FRAN IVP ONE (07:00)
--- NOTE | 2016-12-13 07:06 | ED EENT ---
History of Present Illness General Chief Complaint: Oral/Throat Problems Stated Complaint: STREP THROAT Nursing Triage Note: SORE THROAT Source: patient Exam Limitations: no limitations History of Present Illness Time seen by provider: 06:37 Initial Comments Here with report of strep throat. Patient is currently being treated with Augmentin. She is taken 4 doses of the 14 that she has and is not better. States that in the middle of night, she woke up vomiting and still feels bad. States that she is not able to keep anything down. She tried gargling to help out her throat and that did not work and in fact made her vomit. Has some nausea but states really she has throat pain just doesn't feel well. Timing/Duration: gradual, other (several days) Severity: moderate Location: throat Prearrival Treatment: prescription meds Associated Symptoms: No cough, No drooling, No facial pain/swelling, No fever, nasal congestion/drainage, sore throat Allergies and Home Medications Allergies Coded Allergies: No Known Drug Allergies (Unverified , 06/25/16) Home Medications Amoxicillin/Potassium Clav 1 Each Tablet, (Reported) Norgestimate-Ethinyl Estradiol 1 Each Tablet, (Reported) Review of Systems Constitutional: see HPI, No chills, No fever, No weakness Eyes: No Symptoms Reported Ears: No Symptoms Reported Nose: congestion, denies pain Mouth: no symptoms reported Throat: pain, swelling, denies neck stiffness, denies aphonia, denies muffled, painful swallowing Respiratory: No cough, No short of breath Cardiovascular: no symptoms reported Gastrointestinal: see HPI, No abdominal pain, nausea, vomiting Musculoskeletal: no symptoms reported Skin: no symptoms reported Past Khmnvlf-Cuezsi-Ezpxbw Hx Patient Social History Alcohol Use: Denies Use Recreational Drug Use: No Smoking Status: Never a Smoker Recent Foreign Travel: No Contact w/Someone Who Travel: No Recent Infectious Disease Expo: No Recent Hopitalizations: No Immunizations Up To Date Tetanus Booster (TDap): Unknown Date of Influenza Vaccine: Dec 30, 2015 Seasonal Allergies Seasonal Allergies: Yes Surgeries History of Surgeries: No Respiratory History of Respiratory Disorde: No Cardiovascular History of Cardiac Disorders: No Neurological History of Neurological Disord: No Reproductive System : No Hx Reproductive Disorders: No Sexually Transmitted Disease: No HIV/AIDS: No Female Reproductive Disorders: Denies Genitourinary History of Genitourinary Disor: No Gastrointestinal History of Gastrointestinal Di: No Musculoskeletal History of Musculoskeletal Dis: No Endocrine History of Endocrine Disorders: No HEENT History of HEENT Disorders: No Loss of Vision: Denies Hearing Impairment: Denies Cancer History of Cancer: No Psychosocial History of Psychiatric Problem: No Integumentary History of Skin or Integumenta: No Blood Transfusions History of Blood Disorders: No Adverse Reaction to a Blood Tr: No Reviewed Nursing Assessment Reviewed/Agree w Nursing PMH: Yes Family Medical History Significant Family History: No Pertinent Family Hx Family Medial History: Diabetes mellitus Grandparent's (Maternal Grandmother) Malignant lymph node 19 MOTHER Physical Exam Vital Signs Vital Sign - Last 12Hours 12/13/16 06:47 Temp 99.0 Pulse 117 Resp 18 B/P (MAP) 144/83 Pulse Ox 99 O2 Delivery Room Air General Appearance: WD/WN, no apparent distress Eyes: bilateral eye normal inspection, bilateral eye PERRL, bilateral eye EOMI Nose: other (mild congestion with clear rhinorrhea) Mouth/Throat: No excessive drooling, pharynx swelling, pharynx tenderness, No tongue swollen, tonsillar exudate, tonsillar swelling, No trismus, uvula swelling, No voice changes Neck: full range of motion, supple, lymphadenopathy (R), lymphadenopathy (L) Cardiovascular: regular rate, rhythm, no murmur Respiratory: lungs clear, normal breath sounds Gastrointestinal: non tender, soft Neurologic/Psychiatric: alert, oriented x 3 Skin: normal color, warm/dry Progress/Results/Core Measures Results/Orders Lab Results Laboratory Tests Test 12/13/16 06:55 Range/Units White Blood Count 20.1 H 4.3-11.0 10^3/uL Red Blood Count 5.05 4.35-5.85 10^6/uL Hemoglobin 10.2 L 11.5-16.0 G/DL Hematocrit 32 L 35-52 % Mean Corpuscular Volume 63 L 80-99 FL Mean Corpuscular Hemoglobin 20 L 25-34 PG Mean Corpuscular Hemoglobin Concent 32 32-36 G/DL Red Cell Distribution Width 18.7 H 10.0-14.5 % Platelet Count 287 130-400 10^3/uL Mean Platelet Volume 10.2 7.4-10.4 FL Neutrophils (%) (Auto) 81 H 42-75 % Lymphocytes (%) (Auto) 9 L 12-44 % Monocytes (%) (Auto) 10 0-12 % Eosinophils (%) (Auto) 0 0-10 % Basophils (%) (Auto) 0 0-10 % Neutrophils # (Auto) 16.2 H 1.8-7.8 X 10^3 Lymphocytes # (Auto) 1.8 1.0-4.0 X 10^3 Monocytes # (Auto) 2.0 H 0.0-1.0 X 10^3 Eosinophils # (Auto) 0.1 0.0-0.3 10^3/uL Basophils # (Auto) 0.0 0.0-0.1 10^3/uL Neutrophils % (Manual) 79 % Lymphocytes % (Manual) 9 % Monocytes % (Manual) 9 % Eosinophils % (Manual) 0 % Basophils % (Manual) 0 % Band Neutrophils 3 % Hypochromasia SLIGHT Anisocytosis SLIGHT Microcytosis SLIGHT Sodium Level 137 135-145 MMOL/L Potassium Level 3.7 3.6-5.0 MMOL/L Chloride Level 107 98-107 MMOL/L Carbon Dioxide Level 20 L 21-32 MMOL/L Anion Gap 10 5-14 MMOL/L Blood Urea Nitrogen 9 7-18 MG/DL Creatinine 0.72 0.60-1.30 MG/DL Estimat Glomerular Filtration Rate > 60 BUN/Creatinine Ratio 13 Glucose Level 123 H 70-105 MG/DL Calcium Level 9.0 8.5-10.1 MG/DL My Orders Orders - OCTAVIO FLYNN MD Basic Metabolic Panel (12/13/16 06:48) Cbc With Automated Diff (12/13/16 06:48) Ketorolac Injection (Toradol Injection) (12/13/16 06:48) Saline Lock/Iv-Start (12/13/16 06:48) Ns Iv 1000 Ml (Sodium Chloride 0.9%) (12/13/16 06:48) Dexamethasone Pf Injection (Decadron Pf (12/13/16 06:48) Ondansetron Injection (Zofran Injectio (12/13/16 07:00) Manual Differential (12/13/16 06:55) Medications Given in ED Current Medications Medications Dose Ordered Sig/Yasmany Route Start Time Stop Time Status Last Admin Dose Admin Ondansetron HCl 4 mg ONCE ONCE IVP 12/13/16 07:00 12/13/16 07:01 DC 12/13/16 06:56 4 MG Sodium Chloride 1,000 ml @ 0 mls/hr Q0M ONCE IV 12/13/16 06:48 12/13/16 06:50 DC 12/13/16 06:56 0 MLS/HR Vital Signs/I&O Vital Sign - Last 12Hours 12/13/16 12/13/16 06:47 06:56 Temp 99.0 99.0 Pulse 117 Resp 18 B/P (MAP) 144/83 Pulse Ox 99 O2 Delivery Room Air Blood Pressure Mean: 103 Progress Note : Progress Note Seen and evaluated. Due to persistent nausea for several hours as well as vomiting, we will give IV fluids. Labs, normal saline 1 L bolus, Zofran 4 mg IV , Toradol 30 mg IV and Decadron 10 mg IV ordered. Monitor patient. 0745: Patient reports that she is feeling much better. Labs reviewed. White count is noted to be quite elevated but this may represent mild dehydration as well as the vomiting plus the noted strep pharyngitis that she has. We will prescribe outpatient ondansetron and patient will return if she is unable to keep fluids down or her antibiotics down. Discharged home with return precautions. Patient verbalize understanding instructions and agreement with plan. Departure Impression Impression: Primary Impression: Streptococcal sore throat Additional Impressions: Dehydration Nausea and vomiting Qualified Codes: R11.2 - Nausea with vomiting, unspecified Disposition: 01 HOME, SELF-CARE Condition: Improved Departure-Patient Inst. Decision time for Depature: 07:49 Referrals: [facility] (PCP/Family) Primary Care Physician Patient Instructions: Dehydration, Adult (DC), Nausea and Vomiting, Adult (DC) , Strep Throat (DC) Add. Discharge Instructions: All discharge instructions reviewed with patient and/or family. Voiced understanding. Take medications as directed. Drink plenty of fluids. Clear liquid diet for 24 hours and then advance as tolerated. You may try the culture yogurt or probiotics to help with possible stomach upset related to Augmentin use. You may continue ibuprofen and Tylenol as needed for fever or pain. Return for worse pain, fever, vomiting, weakness, inability to take medications or other concerns as needed. Scripts Ondansetron (Ondansetron Odt) 4 Mg Tab.rapdis 4 MG PO Q6H Y for NAUSEA/VOMITING, #8 TAB 0 Refills Prov: OCTAVIO FLYNN MD 12/13/16 Copy Copies To 1: DELTA DEJESUS MD, TIMOTHY D MD Dec 13, 2016 07:06
[2016-12-13 07:12] LABS: BASOPHILS % (AUTO) 0 % (0-10); EOSINOPHILS # (AUTO) 0.1 10^3/uL (0.0-0.3); EOSINOPHILS % (AUTO) 0 % (0-10); LYMPHOCYTES # (AUTO) 1.8 X 10^3 (1.0-4.0); LYMPHOCYTES % (AUTO) 9 % (12-44); MEAN CORPUSCULAR HEMOGLOBIN 20 PG (25-34); MEAN CORPUSCULAR HGB CONC 32 G/DL (32-36); MEAN CORPUSCULAR VOLUME 63 FL (80-99); MEAN PLATELET VOLUME 10.2 FL (7.4-10.4); MONOCYTES % (AUTO) 10 % (0-12); NEUTROPHILS # (AUTO) 16.2 X 10^3 (1.8-7.8); NEUTROPHILS % (AUTO) 81 % (42-75); PLATELET COUNT 287 10^3/uL (130-400); RED BLOOD COUNT 5.05 10^6/uL (4.35-5.85); RED CELL DISTRIBUTION WIDTH 18.7 % (10.0-14.5); WHITE BLOOD COUNT 20.1 10^3/uL (4.3-11.0)
[2016-12-13 07:25] LABS: ANISOCYTOSIS SLIGHT; BAND NEUTROPHILS 3 %; BASOPHILS % (MANUAL) 0 %; EOSINOPHILS % (MANUAL) 0 %; HYPOCHROMASIA SLIGHT; LYMPHOCYTES % (MANUAL) 9 %; MICROCYTOSIS SLIGHT; NEUTROPHILS % (MANUAL) 79 %
[2016-12-13 07:32] LABS: ANION GAP 10 MMOL/L (5-14); BLOOD UREA NITROGEN 9 MG/DL (7-18); BUN/CREATININE RATIO 13; CARBON DIOXIDE 20 MMOL/L (21-32); CHLORIDE 107 MMOL/L (98-107); CREATININE SERUM 0.72 MG/DL (0.60-1.30); GFR ESTIMATED > 60; GLUCOSE 123 MG/DL (70-105); POTASSIUM 3.7 MMOL/L (3.6-5.0); SODIUM 137 MMOL/L (135-145)
[2016-12-13] MEDS ORDERED: ONDA4TAB11 PO (07:52)
[2016-12-13 08:00] VITALS: BP 138/80
== END 2016-12-13 08:00 | disposition home or self-care (01) ==
LOC: EDUNIT# 06:34 → ER 06:37
DX: J02.0 Streptococcal pharyngitis (principal); E86.0 Dehydration; Z80.7 Family history of other malignant neoplasms of lymphoid, hematopoietic and related tissues
CPT/HCPCS: 36415; 80048; 85007; 85027; 96361; 96374; 96375

== ENCOUNTER 2017-09-17 15:27 | Emergency (ER) | payer MEDICAID ==
[~2017-09-17] VITALS: Ht 152.4 cm; Wt 92.5 kg
[~2017-09-17 15:27] MED LIST changes: +AMOX1TAB12; +NORG1TAB14; +ONDA4TAB11 PO
[2017-09-17 16:24] LABS: BASOPHILS % (AUTO) 0 % (0-10); EOSINOPHILS # (AUTO) 0.3 10^3/uL (0.0-0.3); EOSINOPHILS % (AUTO) 3 % (0-10); HEMATOCRIT 34 % (35-52); LYMPHOCYTES # (AUTO) 2.8 X 10^3 (1.0-4.0); LYMPHOCYTES % (AUTO) 30 % (12-44); MEAN CORPUSCULAR HEMOGLOBIN 21 PG (25-34); MEAN CORPUSCULAR HGB CONC 32 G/DL (32-36); MEAN CORPUSCULAR VOLUME 64 FL (80-99); MEAN PLATELET VOLUME 10.9 FL (7.4-10.4); MONOCYTES # (AUTO) 0.9 X 10^3 (0.0-1.0); MONOCYTES % (AUTO) 10 % (0-12); NEUTROPHILS # (AUTO) 5.3 X 10^3 (1.8-7.8); NEUTROPHILS % (AUTO) 56 % (42-75); PLATELET COUNT 369 10^3/uL (130-400); RED CELL DISTRIBUTION WIDTH 17.7 % (10.0-14.5); WHITE BLOOD COUNT 9.4 10^3/uL (4.3-11.0)
[2017-09-17 16:30] LABS: BILIRUBIN,URINE NEGATIVE (NEGATIVE); CLARITY,URINE CLEAR; COLOR,URINE YELLOW; GLUCOSE, URINE (UA) NEGATIVE (NEGATIVE); KETONES,URINE NEGATIVE (NEGATIVE); LEUKOCYTE ESTERASE ,URINE 2+ (NEGATIVE); NITRITE,URINE NEGATIVE (NEGATIVE); PH,URINE 7 (5-9); PROTEIN,URINE NEGATIVE (NEGATIVE); UROBILINOGEN,URINE NORMAL (NORMAL)
[2017-09-17 16:36] LABS: ALANINE AMINOTRANSFERASE 174 U/L (0-55); ALKALINE PHOSPHATASE 88 U/L (40-136); AMYLASE 45 U/L (25-125); BILIRUBIN,TOTAL 0.8 MG/DL (0.1-1.0); BUN/CREATININE RATIO 10; CALCIUM 9.8 MG/DL (8.5-10.1); CARBON DIOXIDE 24 MMOL/L (21-32); CHLORIDE 105 MMOL/L (98-107); CREATININE SERUM 0.79 MG/DL (0.60-1.30); GFR ESTIMATED > 60; GLUCOSE 97 MG/DL (70-105); LIPASE 27 U/L (8-78); POTASSIUM 3.8 MMOL/L (3.6-5.0); SODIUM 139 MMOL/L (135-145); TOTAL PROTEIN 7.9 GM/DL (6.4-8.2)
[2017-09-17 16:36] LABS: BACTERIA,URINE MODERATE /HPF; SQUAMOUS EPITHELIAL CELL,UR >50 /HPF
--- NOTE | 2017-09-17 16:37 | ED Abdominal Pain ---
General Chief Complaint: Abdominal/GI Problems Stated Complaint: N/V BACK PAIN Nursing Triage Note: PT AMBULATES TO ROOM 3 PT CO OF R UPPER ABD PAIN RADIATES TO BACK SINCE FRIDAY, WAS SENT TO ED BY [facility] CARE TO POSSIBLE GET ULTRASOUND Sepsis Screen: No Definite Risk Source of Information: Patient Exam Limitations: No Limitations (LANG LEE) History of Present Illness Date Seen by Provider: Sep 17, 2017 Time Seen by Provider: 16:10 Initial Comments The patient is a 21-year-old female who presents to the emergency room with complaints of right upper quadrant pain. She reports she's been having intermittent right upper quadrant pain for over a year since her and she just thought it was gas pains. She states that her became pain became worse on Friday and today she went to the walk-in clinic at [facility] for what she thought was a urinary tract infection and they sent her to the emergency room for an ultrasound. She also reports nausea but does not want anything for her pain or nausea at this time. Timing/Duration: 2-3 Days Radiation: RUQ Modifying Factors: Worsens With Eating Associated Symptoms: No Back Pain, No Chest Pain; Nausea/Vomiting (LANG LEE) Severity/Quality: Moderate, Aching Associated Symptoms: Back Pain; No Weakness (OCTAVIO FLYNN MD) Allergies and Home Medications Allergies Coded Allergies: No Known Drug Allergies (Unverified , 06/25/16) Patient Home Medication List Home Medication List Reviewed: Yes (LANG LEE) Review of Systems Constitutional: No chills, No fever EENTM: No Blurred Vision, No Double Vision Respiratory: Denies Orthopnea, Denies Shortness of Air, Denies Wheezing Cardiovascular: Denies Chest Pain, Denies Lightheadedness, Denies Palpitations Gastrointestinal: See HPI, Abdominal Pain, Nausea, Vomiting Genitourinary: See HPI, Other (low back pain and concentrated urine) Musculoskeletal: No see HPI, No back pain Skin: see HPI; No change in color Psychiatric/Neurological: Denies Anxiety, Denies Depressed Endocrine: See HPI; Denies Excessive Sweating Hematologic/Lymphatic: See HPI; Denies Anemia (LANG LEE) Musculoskeletal: back pain (OCTAVIO FLYNN MD) All Other Systems Reviewed Negative Unless Noted: Yes (LANG LEE) Past Gborauc-Jczgst-Xppnbu Hx Past Med/Social Hx: Reviewed Nursing Past Med/Soc Hx (LANG LEE STUDENT) Patient Social History Alcohol Use: Denies Use Recreational Drug Use: No Smoking Status: Never a Smoker Recent Foreign Travel: No Contact w/Someone Who Travel: No Recent Infectious Disease Expo: No Recent Hopitalizations: No Physical Abuse: No Sexual Abuse: No (LANG LEE STUDENT) Immunizations Up To Date Tetanus Booster (TDap): Unknown Date of Influenza Vaccine: Dec 30, 2015 (LANG LEE) Seasonal Allergies Seasonal Allergies: Yes (LANG LEE) Past Medical History Surgeries: No Section Respiratory: No Cardiac: No Neurological: No Reproductive Disorders: No Female Reproductive Disorders: Denies Sexually Transmitted Disease: No HIV/AIDS: No Genitourinary: No Gastrointestinal: No Musculoskeletal: No Endocrine: No HEENT: No Loss of Vision: Denies Hearing Impairment: Denies Cancer: No Psychosocial: No Nursing Suicide Risk Score: 0 Integumentary: No Blood Disorders: No Adverse Reaction/Blood Tranf: No (LANG LEE) Family Medical History Reviewed Nursing Family Hx (LANG LEE STUDENT) Diabetes mellitus Grandparent's (Maternal Grandmother) Malignant lymph node 19 MOTHER No Pertinent Family Hx (LANG LEE) Physical Exam Vital Signs Vital Signs - First Documented 09/17/17 15:57 Temp 97.2 Pulse 87 Resp 18 B/P (MAP) 151/95 (113) Pulse Ox 98 (OCTAVIO FLYNN MD) Vital Signs Capillary Refill : Less Than 3 Seconds (LANG LEE STUDENT) General Appearance: WD/WN, no apparent distress HEENT: TMs normal, pharynx normal Neck: non-tender, full range of motion Respiratory: lungs clear, normal breath sounds, no respiratory distress, no accessory muscle use Cardiovascular: regular rate, rhythm, no edema Gastrointestinal: normal bowel sounds, soft, no organomegaly, no pulsatile mass , tenderness (right upper quadrant tenderness on palpation) Extremities: non-tender, normal inspection, no pedal edema Back: normal inspection, no CVA tenderness, no vertebral tenderness Neurologic/Psychiatric: alert, normal mood/affect, oriented x 3 Skin: normal color, warm/dry Lymphatic: no adenopathy (LANG LEE STUDENT) General Appearance: WD/WN, no apparent distress Gastrointestinal: soft, tenderness (right upper quadrant tenderness on palpation) (OCTAVIO FLYNN MD) Progress/Results/Core Measures Results/Orders Lab Results Laboratory Tests Test 09/17/17 15:45 09/17/17 15:55 Range/Units Urine Color YELLOW Urine Clarity CLEAR Urine pH 7 5-9 Urine Specific [place] 1.010 L 1.016-1.022 Urine Protein NEGATIVE NEGATIVE Urine Glucose (UA) NEGATIVE NEGATIVE Urine Ketones NEGATIVE NEGATIVE Urine Nitrite NEGATIVE NEGATIVE Urine Bilirubin NEGATIVE NEGATIVE Urine Urobilinogen NORMAL NORMAL MG/DL Urine Leukocyte Esterase 2+ H NEGATIVE Urine RBC (Auto) NEGATIVE NEGATIVE Urine RBC NONE /HPF Urine WBC 5-10 H /HPF Urine Squamous Epithelial Cells >50 H /HPF Urine Crystals NONE /LPF Urine Bacteria MODERATE H /HPF Urine Casts NONE /LPF Urine Mucus NEGATIVE /LPF Urine Culture Indicated YES Urine Test NEGATIVE NEGATIVE White Blood Count 9.4 4.3-11.0 10^3/uL Red Blood Count 5.30 4.35-5.85 10^6/uL Hemoglobin 11.0 L 11.5-16.0 G/DL Hematocrit 34 L 35-52 % Mean Corpuscular Volume 64 L 80-99 FL Mean Corpuscular Hemoglobin 21 L 25-34 PG Mean Corpuscular Hemoglobin Concent 32 32-36 G/DL Red Cell Distribution Width 17.7 H 10.0-14.5 % Platelet Count 369 130-400 10^3/uL Mean Platelet Volume 10.9 H 7.4-10.4 FL Neutrophils (%) (Auto) 56 42-75 % Lymphocytes (%) (Auto) 30 12-44 % Monocytes (%) (Auto) 10 0-12 % Eosinophils (%) (Auto) 3 0-10 % Basophils (%) (Auto) 0 0-10 % Neutrophils # (Auto) 5.3 1.8-7.8 X 10^3 Lymphocytes # (Auto) 2.8 1.0-4.0 X 10^3 Monocytes # (Auto) 0.9 0.0-1.0 X 10^3 Eosinophils # (Auto) 0.3 0.0-0.3 10^3/uL Basophils # (Auto) 0.0 0.0-0.1 10^3/uL Sodium Level 139 135-145 MMOL/L Potassium Level 3.8 3.6-5.0 MMOL/L Chloride Level 105 98-107 MMOL/L Carbon Dioxide Level 24 21-32 MMOL/L Anion Gap 10 5-14 MMOL/L Blood Urea Nitrogen 8 7-18 MG/DL Creatinine 0.79 0.60-1.30 MG/DL Estimat Glomerular Filtration Rate > 60 BUN/Creatinine Ratio 10 Glucose Level 97 70-105 MG/DL Calcium Level 9.8 8.5-10.1 MG/DL Total Bilirubin 0.8 0.1-1.0 MG/DL Aspartate Amino Transf (AST/SGOT) 125 H 5-34 U/L Alanine Aminotransferase (ALT/SGPT) 174 H 0-55 U/L Alkaline Phosphatase 88 40-136 U/L Total Protein 7.9 6.4-8.2 GM/DL Albumin 4.0 3.2-4.5 GM/DL Amylase Level 45 25-125 U/L Lipase 27 8-78 U/L (OCTAVIO FLYNN MD) Micro Results Microbiology 09/17/17 Urine Culture - Preliminary, Resulted Sent To [facility] (OCTAVIO FLYNN MD) My Orders Orders - OCTAVIO FLYNN MD Amylase (09/17/17 16:15) Cbc With Automated Diff (09/17/17 16:15) Comprehensive Metabolic Panel (09/17/17 16:15) Hcg,Qualitative Urine (09/17/17 16:15) Lipase (09/17/17 16:15) Ua Culture If Indicated (09/17/17 16:15) Us Gallbladder [id number] (09/17/17 16:15) Saline Lock/Iv-Start (09/17/17 16:15) Urine Culture (09/17/17 15:45) (OCTAVIO FLYNN MD) Vital Signs/I&O 09/17/17 15:57 Temp 97.2 Pulse 87 Resp 18 B/P (MAP) 151/95 (113) Pulse Ox 98 (OCTAVIO FLYNN MD) Blood Pressure Mean: 113 Progress Progress Note : Progress Note By have seen and evaluated the patient and agree with above except as indicated. I have directed the plan of care. Patient is here with right upper quadrant pain. She also reported that she had some back pain and dark urine and thought she might have a urinary tract infection. She presented to the walk -in clinic who sent her here for further evaluation due to the possibility of needing ultrasound for her gallbladder. She does report that she does have right upper quadrant aching pain. This has been a little worse recently and comes and goes but she is not requiring any pain medicine currently. We will check labs and get a gallbladder ultrasound as well as check UA. 1700: Gallbladder ultrasound is positive for multiple small stones in the gallbladder but there is no pericholecystic fluid or other indication of cholecystitis or emergent need for gallbladder removal. I did discuss with her about follow-up with surgeon. We discussed surgeons that are associated with [facility] including Dr. Brandon King and I will provide her with information for them. Discharged home with return precautions. Patient verbalize understanding instructions and agreement with plan. (OCTAVIO FLYNN MD) Diagnostic Imaging Diagonstic Imaging: Ultrasound Plain Films/CT/US/NM/MRI: abdomen Comments Preliminary read shows multiple gallstones within the gallbladder without pericholecystic fluid or gallbladder wall thickening. See final report for details. (OCTAVIO FLYNN MD) Departure Impression Primary Impression: Gallstones Additional Impression: Urinary tract infection Qualified Codes: N30.00 - Acute cystitis without hematuria Disposition: HOME, SELF-CARE Condition: Improved Departure-Patient Inst. Decision time for Depature: 17:07 (OCTAVIO FLYNN MD) Referrals: [facility] (PCP/Family) Primary Care Physician CHANDLER KING BRETT D DO Patient Instructions: Gallstones (DC), Urinary Tract Infection, Adult (DC) Add. Discharge Instructions: All discharge instructions reviewed with patient and/or family. Voiced understanding. Is very important that you avoid fat in your diet as this will activate the pain with your gallbladder. Drink plenty of fluids. Take medications as directed. Call Dr. Taylor or Dr. King for appointment. You may also follow up with your clinic for referral as well. Return for worse pain, fever, vomiting, weakness, breathing problems or other concerns as needed. You may take ibuprofen, 800 mg every 8 hours as needed for pain. You may take Tylenol/ acetaminophen, 1000 mg every 8 hours as needed for pain. Scripts Cephalexin (Cephalexin) 500 Mg Tablet 500 MG PO BID, #10 TAB 0 Refills Prov: OCTAVIO FLYNN MD 09/17/17 LANG LEE STUDENT Sep 17, 2017 16:37 OCTAVIO FLYNN MD Sep 17, 2017 17:07
--- NOTE | 2017-09-17 17:04 | Diagnostic Imaging Report ---
PROCEDURE: US Gallbladder. TECHNIQUE: Multiple real-time grayscale images were obtained over the right upper quadrant in various projections. INDICATION: Abdominal pain with nausea and vomiting. COMPARISON: None. FINDINGS: There is mild diffuse hepatic steatosis. No focal hepatic mass is seen. There is no biliary dilatation. The common bile duct measures about 6 mm. Doppler imaging demonstrates normal hepatopetal flow in the main portal vein. There are multiple small gallstones in the gallbladder. There is no gallbladder wall thickening or pericholecystic fluid. There is no sonographic Perdomo's sign. The pancreas is not well seen. The right kidney measures 9.5 cm in length and appears normal. There is no ascites. IMPRESSION: 1. Cholelithiasis without evidence of cholecystitis. 2. Mild diffuse hepatic steatosis. 3. No additional abnormality is seen. The pancreas is not well visualized. Dictated by: Dictated on workstation # [id number]
[2017-09-17] MEDS ORDERED: CEPH500T PO (17:09)
[2017-09-17 17:27] VITALS: BP 151/95
== END 2017-09-17 17:27 | disposition home or self-care (01) ==
LOC: EDUNIT# 15:27 → ER 15:28
DX: K80.20 Calculus of gallbladder without cholecystitis without obstruction (principal); N39.0 Urinary tract infection, site not specified; Z87.59 Personal history of other complications of pregnancy, childbirth and the puerperium
CPT/HCPCS: 36415; 76705; 80053; 81000; 82150; 83690; 84703; 85025; 87088